=== PATIENT | male | born 1985 | race Caucasian/White ===

== ENCOUNTER 2017-04-02 22:29 | Emergency (ER) | payer SELFPAY ==
[~2017-04-02 22:29] MED LIST: IBUPROFEN800 MG PO; LORTAB 5/500 TA1 TA1 PO; NO MEDICATIONS; NORVASC10 MG PO; PEN-VEE K PO; VIBRAMYCIN100 M1 PO
== END 2017-04-03 02:00 | disposition left against medical advice (07) ==
LOC: CED 22:29
DX: Z53.21 Procedure and treatment not carried out due to patient leaving prior to being seen by health care provider (principal)

== ENCOUNTER 2017-04-03 00:36 | Emergency (ER) | payer SELFPAY | END 2017-04-03 01:45 | disposition home or self-care (01) | LOC: SED 00:36 | DX: L81.9 Disorder of pigmentation, unspecified (principal); I10 Essential (primary) hypertension; F17.210 Nicotine dependence, cigarettes, uncomplicated; Z88.5 Allergy status to narcotic agent; Z88.1 Allergy status to other antibiotic agents; Z79.899 Other long term (current) drug therapy | CPT/HCPCS: 99283 ==